=== PATIENT | female | born 1980 | race American Indian/Alaskan Native ===

== ENCOUNTER 2018-05-26 06:29 | Emergency (ER) | payer OTHER ==
[2018-05-26 06:29] VITALS: BMI 29.9
[2018-05-26 06:46] VITALS: BP 126/74; RESP 18; TEMP 98.8; O2SAT 100
[2018-05-26 07:27] VITALS: PULSE 72
--- NOTE | 2018-05-26 07:38 | ED PDOC ---
Arrival/HPI - General Chief Complaint: Chest Pain Time Seen by Provider: 05/26/18 07:33 Historian: Patient - History of Present Illness Narrative History of Present Illness (Text): 05/26/18 07:34 38 f with no significant pmhx presents to the ED with left shoulder pain radiating down the left arm. Patient reports sharp shooting pain of the left arm, onset this morning, associated with diminished sensation of the left shoulder and upper arm, no weakness, no neck pain, no headache, no chest pain, no obvious injury, no prior hx of the same. Time/Duration: 1-3 hours Symptom Onset: Gradual Symptom Course: Unchanged Quality: Other (sharp) Activities at Onset: Light Context: Home Past Medical History - Provider Review Nursing Documentation Reviewed: Yes - Infectious Disease Hx of Infectious Diseases: None - Psychiatric Hx Substance Use: No - Surgical History Other/Comment: ovarian cyst removal - Anesthesia Hx Anesthesia: No Hx Anesthesia Reactions: No Hx Malignant Hyperthermia: No Family/Social History - Physician Review Nursing Documentation Reviewed: Yes Family/Social History: No Known Family HX Smoking Status: Never Smoked Hx Alcohol Use: No Hx Substance Use: No Allergies/Home Meds Allergies/Adverse Reactions: Allergies No Known Allergies Allergy (Verified 05/26/18 06:54) Review of Systems - Physician Review All systems were reviewed & negative as marked: Yes - Review of Systems Constitutional: absent: Fevers Respiratory: absent: SOB, Cough Cardiovascular: absent: Chest Pain Gastrointestinal: absent: Abdominal Pain, Diarrhea, Nausea, Vomiting Musculoskeletal: Other (left shoulder pain ). absent: Back Pain, Neck Pain Neurological: absent: Headache, Dizziness Physical Exam - Physical Exam Narrative Physical Exam (Text): 05/26/18 07:43 Gen: VS reviewed, alert, well developed, well nourished, nontoxic, mild distress. ENT: normal pharynx. Eye: EOMI, PERRL. Neck: no JVD, supple, no adenopathy. CV: regular rate, regular rhythm, no rubs, no murmur, no gallops, S1, S2, pulses equal and strong. Pulm: no distress, clear to auscultation, no wheeze, no rhonchi, breath sounds equal, no rales. Abd: soft, nontender, no guarding, no rebound, no rigidity, normal bowel sounds. Ext: no edema. Positive impingements of the left shoulder, pain with ab duction, internal rotation, slightly diminished sensation over the left upper arm, and motor strength 5/5 Skin: good color, no rash, no cyanosis. Psych: responds appropriately to questions, normal affect. Neuro: oriented x 3, CN2-12 intact grossly, motor intact, sensation intact. Vital Signs Reviewed: Yes Vital Signs Temp Pulse Pulse Resp BP Pulse Ox 05/26/18 07:25 72 05/26/18 06:45 98.8 F 78 18 126/74 100 Temperature: Afebrile Blood Pressure: Normal Pulse: Regular Respiratory Rate: Normal Appearance: Positive for: Well-Appearing, Non-Toxic, Comfortable Pain Distress: None Mental Status: Positive for: Alert and Oriented X 3 Medical Decision Making ED Course and Treatment: 05/26/18 07:36 Impression: 38 year old female who presents to the emergency department complaining of left shoulder pain. Plan: -- Motrin -- POC urine test -- Reassess and disposition Prior Visits: Notes and results from previous visits were reviewed. Progress Notes: 05/26/18 07:36 patient seen for left shoulder pain. there is clear point tenderness over the left shoulder at the AC joint. clinical presentation consistent with rotator cuf f injury vs radiculopathy. xrays discussed with patient but she would rather initiate her workup with an lab specialist. symptoms are not consistent with an acute CVA. - EKG Interpretation EKG Interpretation (Text): 05/26/18 08:24 EKG performed at 6:40, reviewed by me, shows: NSR at 64bpm with normal qrs, normal axis, and no acute ST/T wave abnormalities. Interpreted by ED Physician: Yes Type: 12 lead EKG - Scribe Statement The provider has reviewed the documentation as recorded by the Irais Wheat Provider Scribe Attestation: All medical record entries made by the Scribe were at my direction and personally dictated by me. I have reviewed the chart and agree that the record accurately reflects my personal performance of the history, physical exam, medical decision making, and the department course for this patient. I have also personally directed, reviewed, and agree with the discharge instructions and disposition. Disposition/Present on Arrival - Present on Arrival Any Indicators Present on Arrival: No History of DVT/PE: No History of Uncontrolled Diabetes: No Urinary Catheter: No History of Decub. Ulcer: No History Surgical Site Infection Following: None - Disposition Have Diagnosis and Disposition been Completed?: Yes Diagnosis: Rotator cuff injury, Radicular pain in left arm Disposition: HOME/ ROUTINE Disposition Time: 07:38 Patient Plan: Discharge Condition: STABLE Discharge Instructions (ExitCare): Radiculopathy (DC), Rotator Cuff Injury (DC) Additional Instructions: follow up with the lab specialist as soon as possible. return for any new or worsening symptoms. Prescriptions: RX: Ibuprofen [Motrin Tab] 600 mg PO QID #42 tab Referrals: Mango Suarez DO [Staff Provider] - Follow up with primary Forms: [facility] (Albanian), WORK NOTE
--- NOTE | 2018-05-26 11:38 | CARD ---
APPROVED REPORT Date of service: 05/26/2018 EKG Measurement Heart [id number] <Conclusion> Normal sinus rhythm Normal ECG
== END 2018-05-26 08:01 | disposition home or self-care (01) ==
LOC: ED 06:29
DX: M79.602 Pain in left arm (principal); S46.002A Unspecified injury of muscle(s) and tendon(s) of the rotator cuff of left shoulder, initial encounter; X58.XXXA Exposure to other specified factors, initial encounter